=== PATIENT | female | born 1975 | race Caucasian/White ===

== ENCOUNTER → 2017-09-01 | Day surgery (SDC) | payer OTHER ==
[~2017-09-01] MED LIST: LIDOCAINE 2% INJ 100 MG/5 ML SDV (FOR ANES.) As Ordered; PROPOFOL 200 MG/20 ML VIAL As Ordered
[2017-09-01] MEDS: NS 1,000 ML IV (09:00)
== END | disposition home or self-care (01) ==
LOC: M OPP 09:01
DX: R19.5 Other fecal abnormalities (principal); D12.0 Benign neoplasm of cecum; D12.7 Benign neoplasm of rectosigmoid junction; K64.8 Other hemorrhoids; K63.89 Other specified diseases of intestine; R10.13 Epigastric pain; K21.0 Gastro-esophageal reflux disease with esophagitis; K29.70 Gastritis, unspecified, without bleeding; R12 Heartburn; G43.909 Migraine, unspecified, not intractable, without status migrainosus; J45.909 Unspecified asthma, uncomplicated; G25.81 Restless legs syndrome; M19.90 Unspecified osteoarthritis, unspecified site; Z87.440 Personal history of urinary (tract) infections; Z88.1 Allergy status to other antibiotic agents; Z88.8 Allergy status to other drugs, medicaments and biological substances; Z79.899 Other long term (current) drug therapy
CPT/HCPCS: 45380

== ENCOUNTER → 2018-08-24 | Outpatient (CLI) | payer OTHER ==
[~2018-08-24] MED LIST changes: +BACL10TA2; +BACT800T5 PO; +BIOT10008 PO; +CALCCHW19 PO; +E-Z-GAS II EFFERVESCENT PACKET (SODIUM BICARB./CITRIC ACID/SIMETHICONE) As Ordered ONE; +E-Z-HD 98% w/w 340GM SUSP BTL As Ordered ONE; +E-Z-PAQUE 96% w/w SUSP 176GM BTL As Ordered ONE; +ESCI10TA2; -LIDOCAINE 2% INJ 100 MG/5 ML SDV (FOR ANES.) As Ordered; +MULT1TAB10 PO; +OXYC1TAB23 PO; +PANT40TA3; -PROPOFOL 200 MG/20 ML VIAL As Ordered; +ROPI0.253; +VITA100067 PO; +ZOLP10TA2
--- NOTE | 2018-08-24 20:38 | REP ---
Esophagram The procedure was performed under the direct supervision of Dr. Abrams. The images were reviewed with Dr. Abrams. A single view PA chest x-ray is submitted as a database management specialist film. The superior mediastinal structures are midline. The heart size is within normal limits. The lungs are clear. Liquid barium and gas producing granules were given in the erect position as well as liquid barium in the prone oblique positions in order to perform a double contrast esophagram examination. The oral and pharyngeal stages of deglutition are unremarkable. Esophageal transport is prompt and efficient and there is no esophagitis, stricture, mucosal ring or hiatal hernia. The GE junction is patulous and there is gastroesophageal reflux demonstrated to the level of the thoracic inlet. Impression: The GE junction is patulous and there is gastroesophageal reflux demonstrated to the level of the thoracic inlet, otherwise, unremarkable double contrast esophagram examination. 0.5 minutes of fluoro time was utilized for this procedure. Reviewed by CECILIA Beaver 08/24/2018 04:11 P Electronically Signed by Ramón Abrams MD 08/24/2018 08:29 P
== END ==
LOC: M RAD 09:27
PROVIDERS: ATTEND Thoracic Surgery (Cardiothoracic Vascular Surgery)
DX: K21.9 Gastro-esophageal reflux disease without esophagitis (principal)

== ENCOUNTER → 2020-06-20 | Outpatient (CLI) | payer OTHER ==
[~2020-06-20] MED LIST changes: +AMIT25TA PO; -E-Z-GAS II EFFERVESCENT PACKET (SODIUM BICARB./CITRIC ACID/SIMETHICONE) As Ordered ONE; -E-Z-HD 98% w/w 340GM SUSP BTL As Ordered ONE; -E-Z-PAQUE 96% w/w SUSP 176GM BTL As Ordered ONE; +FLUO20CA22 PO; +OXYB10TA23 PO; +OXYC-1 PO; +PANT40TA29; -PANT40TA3; +TEMA15CA2 PO; +TIZA2TA PO
== END ==
LOC: M LABSMTC 10:42
PROVIDERS: ATTEND Anesthesiology
DX: Z01.812 Encounter for preprocedural laboratory examination (principal); Z20.828 Contact with and (suspected) exposure to other viral communicable diseases

== ENCOUNTER 2020-06-25 15:01 | Day surgery (SDC) | payer OTHER ==
[~2020-06-25] VITALS: Ht 162.6 cm; Wt 71.6 kg
[~2020-06-25 15:01] MED LIST changes: +NS 1,000 ML IV ONE
[2020-06-25] MEDS ORDERED: LIDOCAINE 2% 100MG/5ML SDV (FOR ANES.) As Ordered ONE (15:04)
[2020-06-25] MEDS ORDERED: propofoL 200 MG/20 ML VIAL As Ordered ONE (15:04)
[2020-06-25 16:48] VITALS: BP 167/100
--- NOTE | 2020-06-25 17:25 | ROOR ---
Patient Name: Debra Lara Procedure Date: 06/25/2020 4:03 PM Date of : 1975 Age: 45 Room: [facility] Gender: Female Note Status: Finalized Procedure: Upper GI endoscopy Indications: Dysphagia Providers: Nain Mckeon MD Referring MD: Olivia Worthington NP Requesting Provider: Medicines: Monitored Anesthesia Care Complications: No immediate complications. Procedure: Pre-Anesthesia Assessment: - Prior to the procedure, a History and Physical was performed, and patient medications and allergies were reviewed. The patient is competent. The risks and benefits of the procedure and the sedation options and risks were discussed with the patient. All questions were answered and informed consent was obtained. Patient identification and proposed procedure were verified by the physician, the nurse and the anesthesiologist in the procedure room. Mental Status Examination: alert and oriented. Airway Examination: normal oropharyngeal airway and neck mobility. Respiratory Examination: clear to auscultation. CV Examination: normal. Prophylactic Antibiotics: The patient does not require prophylactic antibiotics. Prior Anticoagulants: The patient has taken no previous anticoagulant or antiplatelet agents. ASA Grade Assessment: II - A patient with mild systemic disease. After reviewing the risks and benefits, the patient was deemed in satisfactory condition to undergo the procedure. The anesthesia plan was to use monitored anesthesia care (MAC). Immediately prior to administration of medications, the patient was re-assessed for adequacy to receive sedatives. The heart rate, respiratory rate, oxygen saturations, blood pressure, adequacy of pulmonary ventilation, and response to care were monitored throughout the procedure. The physical status of the patient was re-assessed after the procedure. The Endoscope was introduced through the mouth, and advanced to the second part of duodenum. The upper GI endoscopy was accomplished without difficulty. The patient tolerated the procedure well. Findings: A prior Reginald fundoplication was found at the gastroesophageal junction. This was characterized by healthy appearing mucosa and moderate stenosis. LA Grade A (one or more mucosal breaks less than 5 mm, not extending between tops of 2 mucosal folds) esophagitis with no bleeding was found in the distal esophagus. Biopsies were taken with a cold forceps for histology. Verification of patient identification for the specimen was done by the physician and nurse using the patient's name, date and medical record number. Estimated blood loss was minimal. Scattered moderate inflammation characterized by friability and granularity was found in the gastric antrum. The duodenal bulb and second portion of the duodenum were normal. Impression: - A Reginald fundoplication was found, characterized by healthy appearing mucosa and moderate stenosis. - LA Grade A reflux esophagitis. Rule out Reid's esophagus. Biopsied. - Gastritis. - Normal duodenal bulb and second portion of the duodenum. Recommendation: - Patient has a contact number available for emergencies. The signs and symptoms of potential delayed complications were discussed with the patient. Return to normal activities tomorrow. Written discharge instructions were provided to the patient. - High fiber diet. - Follow an antireflux regimen. - Await pathology results. - Repeat upper endoscopy for balloon dilation only if persistent/ worsening difficulty with swallowing. - Telephone GI clinic for pathology results in 2 weeks. - Return to primary care physician. Procedure Code(s): --- Professional --- 57482, Esophagogastroduodenoscopy, flexible, transoral; with biopsy, single or multiple Diagnosis Code(s): --- Professional --- Z98.890, Other specified postprocedural states K21.0, Gastro-esophageal reflux disease with esophagitis K29.70, Gastritis, unspecified, without bleeding R13.10, Dysphagia, unspecified CPT copyright 2019 [employer]. All rights reserved. The codes documented in this report are preliminary and upon surgical device sales representative review may be revised to meet current compliance requirements. Nain Mckeon MD Nain Mckeon MD 06/25/2020 5:24:12 PM Electronically signed by Nain Mckeon MD Number of Addenda: 0 Note Initiated On: 06/25/2020 4:03 PM Estimated Blood Loss: Estimated blood loss was minimal.
== END 2020-06-25 16:52 | disposition home or self-care (01) ==
LOC: M OPP 15:01
PROVIDERS: ATTEND Internal Medicine Gastroenterology
DX: Z98.890 Other specified postprocedural states (principal); K21.00 Gastro-esophageal reflux disease with esophagitis, without bleeding; K29.70 Gastritis, unspecified, without bleeding; R13.10 Dysphagia, unspecified; Z79.899 Other long term (current) drug therapy; Z88.1 Allergy status to other antibiotic agents; Z88.8 Allergy status to other drugs, medicaments and biological substances

== ENCOUNTER 2021-08-28 11:56 | Inpatient (IN) | payer BC, OTHER ==
[~2021-08-28] VITALS: Ht 160 cm; Wt 73.0 kg
[~2021-08-28 11:56] MED LIST changes: -AMIT25TA PO; +AMIT25TA17 PO; +ESCI10TA16; -ESCI10TA2; -NS 1,000 ML IV ONE
[2021-08-28] MEDS ORDERED: fentaNYL 100 MCG/2 ML INJECTION IV ONE ×3 (12:20→14:55)
[2021-08-28] MEDS ORDERED: propofoL 200 MG/20 ML VIAL IV PRN (13:45)
[2021-08-28] MEDS ORDERED: B COCAP4 PO (13:46)
[2021-08-28] MEDS: NS 1,000 ML IV SCH (14:27)
[2021-08-28] MEDS: propofoL 200 MG/20 ML VIAL IV.PROC PRN ×4 (14:28→14:32)
[2021-08-28] MEDS ORDERED: PERCOCET 5MG/325MG TAB PO ONE (15:05)
[2021-08-28] MEDS ORDERED: OXYC7.5T3 PO (15:50)
[2021-08-28 17:07] LABS: BASO # 0.1 10^3/uL (0.0-0.2); BASO % 0.3 % (0.0-1.0); EOS % 0.1 % (0.0-3.0); HEMOGLOBIN 13.8 g/dl (12.0-15.5); LYMPH # 1.8 10^3/uL (1.5-5.0); LYMPH % 10.1 % (24.0-44.0); MEAN CORPUSCULAR HEMOGLOBIN 30.7 pg (27.0-33.0); MEAN CORPUSCULAR HGB CONC 34.5 g/dl (32.0-36.5); MEAN CORPUSCULAR VOLUME 89.1 fl (80.0-96.0); MONO # 0.6 10^3/uL (0.0-0.8); MONO % 3.3 % (2.0-8.0); NEUTROPHILS # 15.5 10^3/uL (1.5-8.5); NEUTROPHILS % 85.8 % (36.0-66.0); PLATELET COUNT, AUTOMATED 354 10^3/uL (150-450); RED BLOOD COUNT 4.49 10^6/uL (4.00-5.40)
[2021-08-28] MEDS ORDERED: FLUO40CA PO (17:22)
[2021-08-28] MEDS ORDERED: TIZA10TA PO (17:27)
[2021-08-28] MEDS ORDERED: VITMTA PO (17:27)
[2021-08-28] MEDS ORDERED: VITA-183 PO (17:27)
[2021-08-28] MEDS ORDERED: CALCTAB41 PO (17:29)
[2021-08-28] MEDS ORDERED: MORPHINE 2 MG/ML 1ML VIAL (J2270) IV PRN (17:30)
[2021-08-28 17:31] LABS: BLOOD UREA NITROGEN 8 MG/DL (7-18); CALCIUM LEVEL 9.2 MG/DL (8.5-10.1); CARBON DIOXIDE LEVEL 20 MEQ/L (21-32); CHLORIDE LEVEL 111 MEQ/L (98-107); CREATININE FOR GFR 0.95 MG/DL (0.55-1.30); GLOMERULAR FILTRATION RATE > 60.0 (>58); GLUCOSE, FASTING 117 MG/DL (70-100); POTASSIUM SERUM 4.2 MEQ/L (3.5-5.1); SODIUM LEVEL 142 MEQ/L (136-145)
[2021-08-28] MEDS ORDERED: HOME MED LIST COMPLETE! XX SCH (17:35)
[2021-08-28] MEDS ORDERED: LORazepam 2 MG/ML VIAL IV ONE (18:05)
[2021-08-28] MEDS: tiZANidine 4 MG TAB PO SCH (18:17)
[2021-08-28] MEDS ORDERED: LORazepam 2 MG/ML VIAL IV PRN (18:50)
[2021-08-28] MEDS ORDERED: ACETAMINOPHEN *IV* 1,000 MG in IV 1 EA IV ONE (19:15)
[2021-08-28] MEDS: HYDROMORPHONE HCL 0.5 MG/ 0.5 ML SYRINGE (J1170 PER 1) IV PRN (20:52)
[2021-08-28] MEDS ORDERED: TEMAZEPAM 15 MG CAP PO SCH (21:00)
[2021-08-28] MEDS ORDERED: FLUoxetine 20 MG CAP PO SCH (21:00)
[2021-08-28] MEDS ORDERED: AMITRIPTYLINE 25MG TABLET PO SCH (21:00)
[2021-08-28] MEDS ORDERED: CALCIUM/VITAMIN D 500 MG TAB PO SCH (21:00)
[2021-08-28] MEDS ORDERED: MULTIVITAMINS/MINERALS THERAP 1 TAB PO SCH (21:00)
[2021-08-28] MEDS: MORPHINE 2 MG/ML 1ML VIAL (J2270) IV PRN (22:25)
[2021-08-29] MEDS: tiZANidine 4 MG TAB PO SCH ×3 (00:57→11:43)
[2021-08-29] MEDS: HYDROMORPHONE HCL 0.5 MG/ 0.5 ML SYRINGE (J1170 PER 1) IV PRN ×4 (00:58→12:45)
[2021-08-29] MEDS: NS 1,000 ML IV SCH (00:58)
[2021-08-29 02:00] VITALS: BP 137/92
[2021-08-29] MEDS: MORPHINE 2 MG/ML 1ML VIAL (J2270) IV PRN ×2 (02:18→07:52)
[2021-08-29 04:00] VITALS: BP 137/79
[2021-08-29 08:00] VITALS: BP 132/86
[2021-08-29 08:28] LABS: BASO # 0.1 10^3/uL (0.0-0.2); BASO % 0.7 % (0.0-1.0); EOS # 0.1 10^3/uL (0.0-0.5); EOS % 0.8 % (0.0-3.0); HEMATOCRIT 36.5 % (36.0-47.0); HEMOGLOBIN 11.9 g/dl (12.0-15.5); LYMPH # 1.9 10^3/uL (1.5-5.0); LYMPH % 20.7 % (24.0-44.0); MEAN CORPUSCULAR HEMOGLOBIN 30.1 pg (27.0-33.0); MEAN CORPUSCULAR HGB CONC 32.6 g/dl (32.0-36.5); MEAN CORPUSCULAR VOLUME 92.4 fl (80.0-96.0); MONO # 0.6 10^3/uL (0.0-0.8); MONO % 6.4 % (2.0-8.0); NEUTROPHILS # 6.6 10^3/uL (1.5-8.5); NEUTROPHILS % 71.1 % (36.0-66.0); PLATELET COUNT, AUTOMATED 294 10^3/uL (150-450); RED BLOOD COUNT 3.95 10^6/uL (4.00-5.40); WHITE BLOOD COUNT 9.2 10^3/uL (4.0-10.0)
[2021-08-29 08:57] LABS: BLOOD UREA NITROGEN 8 MG/DL (7-18); CALCIUM LEVEL 9.1 MG/DL (8.5-10.1); CARBON DIOXIDE LEVEL 24 MEQ/L (21-32); CHLORIDE LEVEL 108 MEQ/L (98-107); CREATININE FOR GFR 0.81 MG/DL (0.55-1.30); GLOMERULAR FILTRATION RATE > 60.0 (>58); GLUCOSE, FASTING 127 MG/DL (70-100); POTASSIUM SERUM 3.4 MEQ/L (3.5-5.1); SODIUM LEVEL 140 MEQ/L (136-145)
[2021-08-29] MEDS: ACETAMINOPHEN TAB 650MG DOSE (2X325MG) PO SCH ×2 (10:12→14:21)
[2021-08-29] MEDS ORDERED: POTASSIUM CHLORIDE 10MEQ SR TABLET PO ONE (10:15)
[2021-08-29 11:44] VITALS: BP 86/54
[2021-08-29 12:00] VITALS: O2SAT 92
[2021-08-29 12:40] VITALS: BP 90/55
[2021-08-29] MEDS ORDERED: DILA2TAB6 PO ×2 (14:02→14:58)
[2021-08-29] MEDS ORDERED: ACET-907 PO (14:02)
[2021-08-29] MEDS ORDERED: HYDROmorphone 2 MG TAB PO PRN (14:30)
[2021-08-29] MEDS ORDERED: PILL CUTTER 1 EACH XX PRN (14:40)
== END 2021-08-29 15:03 | disposition home health service (06) | DRG 342 ==
LOC: M ED 11:56 → M ED INP 11:57 → OBSVTOIN 20:03 → M PCU 08-29 02:00
PROVIDERS: ADMIT Internal Medicine; ATTEND Internal Medicine
PROC: 0QSKXZZ Reposition Left Fibula, External Approach (ICD-10-PCS; principal; 2021-08-28)
PROC: 0QSHXZZ Reposition Left Tibia, External Approach (ICD-10-PCS; 2021-08-28)
PROC: 2W3RX2Z Immobilization of Left Lower Leg using Cast (ICD-10-PCS; 2021-08-28)
DX: S82.855A Nondisplaced trimalleolar fracture of left lower leg, initial encounter for closed fracture (principal); S82.832A Other fracture of upper and lower end of left fibula, initial encounter for closed fracture; S82.302A Unspecified fracture of lower end of left tibia, initial encounter for closed fracture; S92.354A Nondisplaced fracture of fifth metatarsal bone, right foot, initial encounter for closed fracture; W10.8XXA Fall (on) (from) other stairs and steps, initial encounter; G43.909 Migraine, unspecified, not intractable, without status migrainosus; M79.7 Fibromyalgia; Z79.891 Long term (current) use of opiate analgesic; K21.9 Gastro-esophageal reflux disease without esophagitis; M81.0 Age-related osteoporosis without current pathological fracture; Z79.899 Other long term (current) drug therapy; Z88.1 Allergy status to other antibiotic agents; Z88.8 Allergy status to other drugs, medicaments and biological substances; Z20.822 Contact with and (suspected) exposure to COVID-19; Y92.9 Unspecified place or not applicable

== ENCOUNTER 2021-09-02 12:59 | Inpatient (IN) | payer BC ==
[~2021-09-02] VITALS: Ht 160 cm; Wt 75.1 kg
[2021-09-02] VITALS (8 sets, daily range): BP systolic 111–166; BP diastolic 60–92; O2SAT 95
[2021-09-02] MEDS ORDERED: HOME MED LIST COMPLETE! XX SCH (15:35)
[2021-09-02 15:58] LABS: HEMATOCRIT 36.1 % (36.0-47.0); HEMOGLOBIN 11.9 g/dl (12.0-15.5); MEAN CORPUSCULAR HEMOGLOBIN 30.1 pg (27.0-33.0); MEAN CORPUSCULAR VOLUME 91.4 fl (80.0-96.0); PLATELET COUNT, AUTOMATED 367 10^3/uL (150-450); RED BLOOD COUNT 3.95 10^6/uL (4.00-5.40); WHITE BLOOD COUNT 8.8 10^3/uL (4.0-10.0)
[2021-09-02] MEDS ORDERED: METOCLOPRAMIDE INJ 10MG/2ML VIAL (J2765 PER 1) As Ordered ONE (16:06)
[2021-09-02] MEDS ORDERED: KETOROLAC 60MG 2ML VIAL As Ordered ONE (16:06)
[2021-09-02] MEDS ORDERED: ONDANSETRON 4MG/2ML VIAL As Ordered ONE (16:06)
[2021-09-02] MEDS ORDERED: dexameTHASONE 4 MG/ML 1ML VIAL (J1100 PER 1MG) As Ordered ONE (16:06)
[2021-09-02] MEDS ORDERED: propofoL 200 MG/20 ML VIAL As Ordered ONE (16:06)
[2021-09-02] MEDS ORDERED: LIDOCAINE 2% 100MG/5ML SDV (FOR ANES.) As Ordered ONE (16:06)
[2021-09-02] MEDS ORDERED: MIDAZOLAM INJ 2MG/2ML VIAL (J2250 PER 1MG) As Ordered ONE ×2 (16:07→18:24)
[2021-09-02] MEDS ORDERED: fentaNYL 100 MCG/2 ML INJECTION As Ordered ONE ×2 (16:07→17:37)
[2021-09-02] MEDS ORDERED: BACITRACIN OINTMENT 30GM TUBE As Ordered ONE (16:13)
[2021-09-02 16:18] LABS: BLOOD UREA NITROGEN 10 MG/DL (7-18); CALCIUM LEVEL 9.8 MG/DL (8.5-10.1); CARBON DIOXIDE LEVEL 24 MEQ/L (21-32); CHLORIDE LEVEL 109 MEQ/L (98-107); CREATININE FOR GFR 0.76 MG/DL (0.55-1.30); GLOMERULAR FILTRATION RATE > 60.0 (>58); GLUCOSE, FASTING 97 MG/DL (70-100); POTASSIUM SERUM 3.8 MEQ/L (3.5-5.1); SODIUM LEVEL 141 MEQ/L (136-145)
[2021-09-02] MEDS ORDERED: BUPIVACAINE HCL 0.25% 30ML VIAL As Ordered ONE (16:43)
[2021-09-02] MEDS ORDERED: ceFAZolin 2 GM/D5W 50 ML IV BAG (J0690 PER 500MG) IV ONE (17:00)
[2021-09-02] MEDS: fentaNYL 100 MCG/2 ML INJECTION IV PRN ×4 (17:37→17:52)
[2021-09-02] MEDS ORDERED: ACETAMINOPHEN 325 MG TAB PO PRN (17:40)
[2021-09-02] MEDS ORDERED: ONDANSETRON 4MG/2ML VIAL IV PRN (17:45)
[2021-09-02] MEDS ORDERED: oxyCODONE 5MG TAB PO PRN (17:45)
[2021-09-02] MEDS ORDERED: HYDROmorphone HCL 2MG/ML 1ML VIAL As Ordered ONE (17:45)
[2021-09-02] MEDS ORDERED: LR 1,000 ML IV SCH (17:45)
[2021-09-02] MEDS: HYDROMORPHONE HCL 0.5 MG/ 0.5 ML SYRINGE (J1170 PER 1) IV PRN ×8 (17:50→18:25)
[2021-09-02] MEDS ORDERED: KETAMINE HCL 200 MG/20 ML VIAL As Ordered ONE (18:24)
[2021-09-02] MEDS ORDERED: LIDOCAINE 1% MDV 20ML VIAL XX ONE (18:35)
[2021-09-02] MEDS ORDERED: ROPIvacaine 0.5% 30ML INJECTION (J2795 PER 1MG) XX ONE (18:35)
[2021-09-02] MEDS ORDERED: dexameTHASONE 10MG/1ML VIAL PRES.FREE (J1100 PER 1MG) XX ONE (18:35)
[2021-09-02] MEDS: MIDAZOLAM INJ 2MG/2ML VIAL (J2250 PER 1MG) IV PRN ×2 (18:38→18:40)
[2021-09-02] MEDS: KETAMINE HCL 200 MG/20 ML VIAL IV PRN ×3 (18:39→18:43)
[2021-09-02] MEDS: CALCIUM/VITAMIN D 500 MG TAB PO SCH (20:14)
[2021-09-02] MEDS: tiZANidine 4 MG TAB PO SCH (20:14)
[2021-09-02] MEDS: FLUoxetine 20 MG CAP PO SCH (20:15)
[2021-09-02] MEDS: AMITRIPTYLINE 25MG TABLET PO SCH (20:15)
[2021-09-02] MEDS: MULTIVITAMINS/MINERALS THERAP 1 TAB PO SCH (20:15)
[2021-09-03] VITALS (8 sets, daily range): BP systolic 106–159; BP diastolic 62–95; O2SAT 95–96
[2021-09-03] MEDS: ceFAZolin SOD 1 GM in D5W MINI-BAG PLUS 50 ML IV SCH ×3 (00:59→17:22)
[2021-09-03] MEDS: MORPHINE 4 MG/ML 1ML VIAL/SYRINGE (J2270) IV PRN ×3 (05:38→14:53)
[2021-09-03 06:18] LABS: HEMATOCRIT 35.9 % (36.0-47.0); HEMOGLOBIN 11.7 g/dl (12.0-15.5); MEAN CORPUSCULAR HEMOGLOBIN 30.2 pg (27.0-33.0); MEAN CORPUSCULAR HGB CONC 32.6 g/dl (32.0-36.5); MEAN CORPUSCULAR VOLUME 92.8 fl (80.0-96.0); PLATELET COUNT, AUTOMATED 357 10^3/uL (150-450); RED BLOOD COUNT 3.87 10^6/uL (4.00-5.40); WHITE BLOOD COUNT 6.5 10^3/uL (4.0-10.0)
[2021-09-03 06:35] LABS: BLOOD UREA NITROGEN 11 MG/DL (7-18); CREATININE FOR GFR 0.79 MG/DL (0.55-1.30); GLOMERULAR FILTRATION RATE > 60.0 (>58); GLUCOSE, FASTING 133 MG/DL (70-100)
[2021-09-03 06:36] LABS: CALCIUM LEVEL 10.1 MG/DL (8.5-10.1); CARBON DIOXIDE LEVEL 24 MEQ/L (21-32); CHLORIDE LEVEL 107 MEQ/L (98-107); POTASSIUM SERUM 3.9 MEQ/L (3.5-5.1); SODIUM LEVEL 139 MEQ/L (136-145)
[2021-09-03] MEDS: oxyCODONE 5MG TAB PO PRN ×2 (08:29→18:21)
[2021-09-03] MEDS: ACETAMINOPHEN 325 MG TAB PO SCH ×2 (13:46→20:16)
[2021-09-03] MEDS: HYDROmorphone 2 MG TAB PO PRN (15:55)
[2021-09-03] MEDS: ENOXAPARIN 40MG/0.4ML SYRINGE (J1650 PER 10MG) SC SCH (17:22)
[2021-09-03] MEDS: MULTIVITAMINS/MINERALS THERAP 1 TAB PO SCH (20:15)
[2021-09-03] MEDS: tiZANidine 4 MG TAB PO SCH (20:15)
[2021-09-03] MEDS: CALCIUM/VITAMIN D 500 MG TAB PO SCH (20:16)
[2021-09-03] MEDS: FLUoxetine 20 MG CAP PO SCH (20:17)
[2021-09-03] MEDS: AMITRIPTYLINE 25MG TABLET PO SCH (20:17)
[2021-09-04] MEDS: ACETAMINOPHEN 325 MG TAB PO SCH ×4 (01:18→20:02)
[2021-09-04] MEDS: HYDROmorphone 2 MG TAB PO PRN ×3 (01:22→17:18)
[2021-09-04 06:00] VITALS: BP 100/68
[2021-09-04 08:00] VITALS: BP 114/77
[2021-09-04] MEDS: IBUPROFEN 800 MG TAB PO SCH ×3 (13:03→23:51)
[2021-09-04] MEDS: oxyCODONE 5MG TAB PO PRN (13:07)
[2021-09-04 14:00] VITALS: BP 117/77
[2021-09-04] MEDS: MIRALAX *UNIT DOSE* 17GM PACKET PO SCH (15:28)
[2021-09-04] MEDS: ENOXAPARIN 40MG/0.4ML SYRINGE (J1650 PER 10MG) SC SCH (17:19)
[2021-09-04 20:00] VITALS: O2SAT 96
[2021-09-04] MEDS: MULTIVITAMINS/MINERALS THERAP 1 TAB PO SCH (20:02)
[2021-09-04] MEDS: CALCIUM/VITAMIN D 500 MG TAB PO SCH (20:02)
[2021-09-04] MEDS: tiZANidine 4 MG TAB PO SCH (20:02)
[2021-09-04] MEDS: AMITRIPTYLINE 25MG TABLET PO SCH (20:03)
[2021-09-04] MEDS: FLUoxetine 20 MG CAP PO SCH (20:04)
[2021-09-04 22:00] VITALS: BP 104/69
[2021-09-05] MEDS: ACETAMINOPHEN 325 MG TAB PO SCH ×4 (01:22→20:11)
[2021-09-05] MEDS: oxyCODONE 5MG TAB PO PRN ×2 (04:39→12:49)
[2021-09-05 06:00] VITALS: BP 142/76
[2021-09-05] MEDS: IBUPROFEN 800 MG TAB PO SCH (06:00)
[2021-09-05 06:18] LABS: HEMATOCRIT 36.2 % (36.0-47.0); HEMOGLOBIN 11.6 g/dl (12.0-15.5); MEAN CORPUSCULAR HEMOGLOBIN 30.4 pg (27.0-33.0); MEAN CORPUSCULAR VOLUME 94.8 fl (80.0-96.0); PLATELET COUNT, AUTOMATED 316 10^3/uL (150-450); RED BLOOD COUNT 3.82 10^6/uL (4.00-5.40)
[2021-09-05 07:39] VITALS: BP 141/79
[2021-09-05 08:01] LABS: BLOOD UREA NITROGEN 19 MG/DL (7-18); CALCIUM LEVEL 9.5 MG/DL (8.5-10.1); CARBON DIOXIDE LEVEL 31 MEQ/L (21-32); CHLORIDE LEVEL 107 MEQ/L (98-107); CREATININE FOR GFR 0.87 MG/DL (0.55-1.30); GLOMERULAR FILTRATION RATE > 60.0 (>58); GLUCOSE, FASTING 83 MG/DL (70-100); POTASSIUM SERUM 4.4 MEQ/L (3.5-5.1); SODIUM LEVEL 142 MEQ/L (136-145)
[2021-09-05] MEDS: MIRALAX *UNIT DOSE* 17GM PACKET PO SCH (08:11)
[2021-09-05] MEDS ORDERED: MOM 30ML SUSPENSION UDC PO PRN (13:35)
[2021-09-05 14:00] VITALS: BP 139/74
[2021-09-05] MEDS: ENOXAPARIN 40MG/0.4ML SYRINGE (J1650 PER 10MG) SC SCH ×2 (18:00→18:59)
[2021-09-05] MEDS: HYDROmorphone 2 MG TAB PO PRN (18:53)
[2021-09-05] MEDS: MULTIVITAMINS/MINERALS THERAP 1 TAB PO SCH (20:08)
[2021-09-05] MEDS: CALCIUM/VITAMIN D 500 MG TAB PO SCH (20:08)
[2021-09-05] MEDS: tiZANidine 4 MG TAB PO SCH (20:09)
[2021-09-05] MEDS: DOCUSATE SODIUM 100MG CAPSULE PO SCH (20:09)
[2021-09-05] MEDS: AMITRIPTYLINE 25MG TABLET PO SCH (20:11)
[2021-09-05] MEDS: FLUoxetine 20 MG CAP PO SCH (20:12)
[2021-09-05 22:00] VITALS: BP 117/71
[2021-09-06] MEDS: ACETAMINOPHEN 325 MG TAB PO SCH ×4 (01:54→21:45)
[2021-09-06] MEDS: oxyCODONE 5MG TAB PO PRN ×2 (01:55→21:47)
[2021-09-06] MEDS: HYDROmorphone 2 MG TAB PO PRN (05:12)
[2021-09-06 06:00] VITALS: BP 135/86
[2021-09-06 06:48] LABS: BLOOD UREA NITROGEN 16 MG/DL (7-18); CALCIUM LEVEL 9.2 MG/DL (8.5-10.1); CARBON DIOXIDE LEVEL 30 MEQ/L (21-32); CHLORIDE LEVEL 106 MEQ/L (98-107); CREATININE FOR GFR 0.74 MG/DL (0.55-1.30); GLOMERULAR FILTRATION RATE > 60.0 (>58); GLUCOSE, FASTING 92 MG/DL (70-100); POTASSIUM SERUM 4.3 MEQ/L (3.5-5.1); SODIUM LEVEL 142 MEQ/L (136-145)
[2021-09-06] MEDS: MIRALAX *UNIT DOSE* 17GM PACKET PO SCH (08:18)
[2021-09-06] MEDS: DOCUSATE SODIUM 100MG CAPSULE PO SCH ×2 (08:18→21:43)
[2021-09-06 14:00] VITALS: BP 131/83
[2021-09-06] MEDS: ENOXAPARIN 40MG/0.4ML SYRINGE (J1650 PER 10MG) SC SCH (17:06)
[2021-09-06 20:30] VITALS: BP 126/73
[2021-09-06] MEDS: MULTIVITAMINS/MINERALS THERAP 1 TAB PO SCH (21:43)
[2021-09-06] MEDS: CALCIUM/VITAMIN D 500 MG TAB PO SCH (21:43)
[2021-09-06] MEDS: tiZANidine 4 MG TAB PO SCH (21:44)
[2021-09-06] MEDS: FLUoxetine 20 MG CAP PO SCH (21:46)
[2021-09-06] MEDS: AMITRIPTYLINE 25MG TABLET PO SCH (21:46)
[2021-09-07] MEDS: ACETAMINOPHEN 325 MG TAB PO SCH ×4 (02:05→21:51)
[2021-09-07] MEDS: HYDROmorphone 2 MG TAB PO PRN ×2 (04:06→22:14)
[2021-09-07 05:33] VITALS: BP 112/66
[2021-09-07] MEDS: DOCUSATE SODIUM 100MG CAPSULE PO SCH ×2 (08:02→21:50)
[2021-09-07] MEDS: MIRALAX *UNIT DOSE* 17GM PACKET PO SCH (08:02)
[2021-09-07] MEDS: oxyCODONE 5MG TAB PO PRN (09:24)
[2021-09-07 14:00] VITALS: BP 106/64
[2021-09-07] MEDS: ENOXAPARIN 40MG/0.4ML SYRINGE (J1650 PER 10MG) SC SCH (17:09)
[2021-09-07] MEDS: FLUoxetine 20 MG CAP PO SCH (21:00)
[2021-09-07] MEDS: MULTIVITAMINS/MINERALS THERAP 1 TAB PO SCH (21:00)
[2021-09-07] MEDS: CALCIUM/VITAMIN D 500 MG TAB PO SCH (21:50)
[2021-09-07] MEDS: tiZANidine 4 MG TAB PO SCH (21:50)
[2021-09-07] MEDS: AMITRIPTYLINE 25MG TABLET PO SCH (22:13)
[2021-09-08] MEDS: ACETAMINOPHEN 325 MG TAB PO SCH ×4 (02:00→20:40)
[2021-09-08] MEDS: oxyCODONE 5MG TAB PO PRN ×2 (02:06→18:03)
[2021-09-08 06:00] VITALS: BP 111/73
[2021-09-08 06:47] LABS: HEMATOCRIT 34.6 % (36.0-47.0); HEMOGLOBIN 11.1 g/dl (12.0-15.5); MEAN CORPUSCULAR HEMOGLOBIN 30.7 pg (27.0-33.0); MEAN CORPUSCULAR HGB CONC 32.1 g/dl (32.0-36.5); MEAN CORPUSCULAR VOLUME 95.6 fl (80.0-96.0); PLATELET COUNT, AUTOMATED 316 10^3/uL (150-450); RED BLOOD COUNT 3.62 10^6/uL (4.00-5.40); WHITE BLOOD COUNT 5.7 10^3/uL (4.0-10.0)
[2021-09-08] MEDS: MIRALAX *UNIT DOSE* 17GM PACKET PO SCH (08:10)
[2021-09-08] MEDS: DOCUSATE SODIUM 100MG CAPSULE PO SCH ×2 (08:10→20:40)
[2021-09-08] MEDS: ENOXAPARIN 40MG/0.4ML SYRINGE (J1650 PER 10MG) SC SCH (18:00)
[2021-09-08] MEDS: PANTOPRAZOLE 40MG VIAL (C9113 PER 1) IV SCH (20:39)
[2021-09-08 20:40] VITALS: BP 139/93
[2021-09-08] MEDS: AMITRIPTYLINE 25MG TABLET PO SCH (20:40)
[2021-09-08] MEDS: FLUoxetine 20 MG CAP PO SCH (20:41)
[2021-09-08] MEDS: MULTIVITAMINS/MINERALS THERAP 1 TAB PO SCH (20:41)
[2021-09-08] MEDS: CALCIUM/VITAMIN D 500 MG TAB PO SCH (20:41)
[2021-09-08] MEDS: tiZANidine 4 MG TAB PO SCH (20:41)
[2021-09-09] VITALS (7 sets, daily range): BP systolic 148–170; BP diastolic 84–104
[2021-09-09] MEDS: HYDROmorphone 2 MG TAB PO PRN ×2 (00:27→18:52)
[2021-09-09] MEDS: ACETAMINOPHEN 325 MG TAB PO SCH ×4 (02:06→22:30)
[2021-09-09] MEDS: oxyCODONE 5MG TAB PO PRN (06:03)
[2021-09-09 06:35] LABS: HEMATOCRIT 37.3 % (36.0-47.0); HEMOGLOBIN 12.1 g/dl (12.0-15.5); MEAN CORPUSCULAR HEMOGLOBIN 30.7 pg (27.0-33.0); MEAN CORPUSCULAR HGB CONC 32.4 g/dl (32.0-36.5); MEAN CORPUSCULAR VOLUME 94.7 fl (80.0-96.0); PLATELET COUNT, AUTOMATED 340 10^3/uL (150-450); RED BLOOD COUNT 3.94 10^6/uL (4.00-5.40); WHITE BLOOD COUNT 6.2 10^3/uL (4.0-10.0)
[2021-09-09 06:47] LABS: ALBUMIN 3.5 GM/DL (3.2-5.2); ALT/SGPT 99 U/L (12-78); BILIRUBIN,TOTAL 0.2 MG/DL (0.2-1.0); BLOOD UREA NITROGEN 13 MG/DL (7-18); CALCIUM LEVEL 9.2 MG/DL (8.5-10.1); CARBON DIOXIDE LEVEL 27 MEQ/L (21-32); CHLORIDE LEVEL 108 MEQ/L (98-107); CREATININE FOR GFR 0.92 MG/DL (0.55-1.30); GLOMERULAR FILTRATION RATE > 60.0 (>58); GLUCOSE, FASTING 101 MG/DL (70-100); POTASSIUM SERUM 4.3 MEQ/L (3.5-5.1); SODIUM LEVEL 140 MEQ/L (136-145); TOTAL PROTEIN 6.9 GM/DL (6.4-8.2)
[2021-09-09] MEDS ORDERED: MIDAZOLAM INJ 2MG/2ML VIAL (J2250 PER 1MG) IV PRN (07:01)
[2021-09-09] MEDS ORDERED: fentaNYL 100 MCG/2 ML INJECTION IV PRN ×2 (07:01→13:20)
[2021-09-09] MEDS ORDERED: propofoL 200 MG/20 ML VIAL As Ordered ONE (08:26)
[2021-09-09] MEDS ORDERED: MIDAZOLAM INJ 2MG/2ML VIAL (J2250 PER 1MG) As Ordered ONE (08:26)
[2021-09-09] MEDS ORDERED: ROCURONIUM BROMIDE 50 MG/5 ML VIAL As Ordered ONE ×2 (08:26→10:23)
[2021-09-09] MEDS ORDERED: fentaNYL 100 MCG/2 ML INJECTION As Ordered ONE ×2 (08:26→11:29)
[2021-09-09] MEDS: PANTOPRAZOLE 40MG VIAL (C9113 PER 1) IV SCH (08:27)
[2021-09-09] MEDS: MIRALAX *UNIT DOSE* 17GM PACKET PO SCH (08:27)
[2021-09-09] MEDS ORDERED: ONDANSETRON 4MG/2ML VIAL As Ordered ONE (08:27)
[2021-09-09] MEDS ORDERED: dexameTHASONE 4 MG/ML 1ML VIAL (J1100 PER 1MG) As Ordered ONE (08:27)
[2021-09-09] MEDS: DOCUSATE SODIUM 100MG CAPSULE PO SCH ×2 (08:27→22:30)
[2021-09-09] MEDS ORDERED: LIDOCAINE 2% 100MG/5ML SDV (FOR ANES.) As Ordered ONE (08:27)
[2021-09-09] MEDS ORDERED: BUPIVACAINE HCL 0.25% 30ML VIAL As Ordered ONE (08:51)
[2021-09-09 09:09] LABS: INR 0.89; PROTHROMBIN TIME 12.4 SECONDS (12.7-14.5)
[2021-09-09] MEDS ORDERED: EPINEPHrine INJ 1 MG/ML 1ML AMP XX ONE (09:15)
[2021-09-09] MEDS ORDERED: dexameTHASONE 10MG/1ML VIAL PRES.FREE (J1100 PER 1MG) XX ONE (09:15)
[2021-09-09] MEDS ORDERED: ROPIvacaine 0.5% 30ML INJECTION (J2795 PER 1MG) XX ONE (09:15)
[2021-09-09] MEDS ORDERED: BUPIVACAINE LIPOSOME/PF 1.3% 20ML VIAL (13.3MG/ML)(EXPAREL)(C9290 PER1MG) As Ordered ONE (09:24)
[2021-09-09] MEDS ORDERED: ceFAZolin 2 GM/D5W 50 ML IV BAG (J0690 PER 500MG) As Ordered ONE (09:39)
[2021-09-09] MEDS ORDERED: KETAMINE HCL 200 MG/20 ML VIAL As Ordered ONE (10:16)
[2021-09-09] MEDS ORDERED: SUGAMMADEX SODIUM 500 MG/5 ML VIAL (BRIDION) As Ordered ONE (10:24)
[2021-09-09] MEDS ORDERED: ACETAMINOPHEN 1000MG 100ML IV BTL (OFIRMEV) (J0131 PER 10MG) As Ordered ONE (10:26)
[2021-09-09] MEDS ORDERED: LABETALOL 100MG/20ML VIAL As Ordered ONE (11:52)
[2021-09-09] MEDS ORDERED: HYDROmorphone HCL 2MG/ML 1ML VIAL As Ordered ONE (12:52)
[2021-09-09] MEDS ORDERED: ONDANSETRON 4MG/2ML VIAL IV PRN ×2 (13:20→20:30)
[2021-09-09] MEDS ORDERED: oxyCODONE 5MG TAB PO PRN (13:20)
[2021-09-09] MEDS ORDERED: LR 1,000 ML IV SCH (13:20)
[2021-09-09] MEDS ORDERED: HYDROMORPHONE HCL 0.5 MG/ 0.5 ML SYRINGE (J1170 PER 1) IV PRN (14:30)
[2021-09-09] MEDS: ceFAZolin SOD 1 GM in D5W MINI-BAG PLUS 50 ML IV SCH (18:52)
[2021-09-09] MEDS: AMITRIPTYLINE 25MG TABLET PO SCH (22:30)
[2021-09-09] MEDS: CALCIUM/VITAMIN D 500 MG TAB PO SCH (22:30)
[2021-09-09] MEDS: FLUoxetine 20 MG CAP PO SCH (22:30)
[2021-09-09] MEDS: MULTIVITAMINS/MINERALS THERAP 1 TAB PO SCH (22:30)
[2021-09-09] MEDS: tiZANidine 4 MG TAB PO SCH (22:31)
[2021-09-10] VITALS: BP_SYST 106; BP_SYST 95; BP_DIAS 52; BP_DIAS 57
[2021-09-10 01:03] VITALS: BP 105/61; O2SAT 93
[2021-09-10 01:10] VITALS: BP 106/66
[2021-09-10] MEDS: ceFAZolin SOD 1 GM in D5W MINI-BAG PLUS 50 ML IV SCH ×2 (01:36→09:23)
[2021-09-10] MEDS: ACETAMINOPHEN 325 MG TAB PO SCH ×3 (01:37→13:34)
[2021-09-10 04:00] VITALS: BP 108/73
[2021-09-10 06:13] LABS: HEMATOCRIT 32.9 % (36.0-47.0); HEMOGLOBIN 10.7 g/dl (12.0-15.5); MEAN CORPUSCULAR HGB CONC 32.5 g/dl (32.0-36.5); MEAN CORPUSCULAR VOLUME 95.4 fl (80.0-96.0); PLATELET COUNT, AUTOMATED 325 10^3/uL (150-450); RED BLOOD COUNT 3.45 10^6/uL (4.00-5.40); WHITE BLOOD COUNT 11.3 10^3/uL (4.0-10.0)
[2021-09-10] MEDS: oxyCODONE 5MG TAB PO PRN (06:14)
[2021-09-10 06:48] LABS: ALBUMIN 3.1 GM/DL (3.2-5.2); ALT/SGPT 106 U/L (12-78); BILIRUBIN,TOTAL 0.5 MG/DL (0.2-1.0); BLOOD UREA NITROGEN 11 MG/DL (7-18); CARBON DIOXIDE LEVEL 26 MEQ/L (21-32); CHLORIDE LEVEL 106 MEQ/L (98-107); CREATININE FOR GFR 0.91 MG/DL (0.55-1.30); GLOMERULAR FILTRATION RATE > 60.0 (>58); GLUCOSE, FASTING 109 MG/DL (70-100); POTASSIUM SERUM 3.8 MEQ/L (3.5-5.1); SODIUM LEVEL 137 MEQ/L (136-145); TOTAL PROTEIN 6.9 GM/DL (6.4-8.2)
[2021-09-10] MEDS: MIRALAX *UNIT DOSE* 17GM PACKET PO SCH (09:00)
[2021-09-10] MEDS: DOCUSATE SODIUM 100MG CAPSULE PO SCH (09:22)
[2021-09-10] MEDS: PANTOPRAZOLE 40MG VIAL (C9113 PER 1) IV SCH (09:23)
[2021-09-10] MEDS: HYDROmorphone 2 MG TAB PO PRN ×2 (09:25→13:36)
[2021-09-10 10:00] VITALS: BP 102/59
[2021-09-10 11:30] VITALS: O2SAT 95
[2021-09-10] MEDS ORDERED: ENOXAPARIN 40MG/0.4ML SYRINGE (J1650 PER 10MG) SC SCH (13:00)
[2021-09-10] MEDS ORDERED: MIRA1POW3 PO (13:12)
[2021-09-10] MEDS ORDERED: COLA100C5 PO (13:12)
== END 2021-09-10 14:44 | disposition home or self-care (01) | DRG 313 ==
LOC: M MSPAV 13:47
PROVIDERS: ADMIT Orthopaedic Surgery Hand Surgery; ATTEND Internal Medicine
PROC: 0QHH35Z Insertion of External Fixation Device into Left Tibia, Percutaneous Approach (ICD-10-PCS; 2021-09-02)
PROC: 0QSHXZZ Reposition Left Tibia, External Approach (ICD-10-PCS; principal; 2021-09-02 15:30)
PROC: 0QSH04Z Reposition Left Tibia with Internal Fixation Device, Open Approach (ICD-10-PCS; 2021-09-09)
PROC: 0QSK04Z Reposition Left Fibula with Internal Fixation Device, Open Approach (ICD-10-PCS; 2021-09-09)
DX: S82.852A Displaced trimalleolar fracture of left lower leg, initial encounter for closed fracture (principal); M79.7 Fibromyalgia; G43.909 Migraine, unspecified, not intractable, without status migrainosus; K21.9 Gastro-esophageal reflux disease without esophagitis; M81.0 Age-related osteoporosis without current pathological fracture; K59.00 Constipation, unspecified; K22.70 Barrett's esophagus without dysplasia; S92.351A Displaced fracture of fifth metatarsal bone, right foot, initial encounter for closed fracture; Z79.899 Other long term (current) drug therapy; Z88.8 Allergy status to other drugs, medicaments and biological substances; W18.30XA Fall on same level, unspecified, initial encounter; Y92.009 Unspecified place in unspecified non-institutional (private) residence as the place of occurrence of the external cause

== ENCOUNTER → 2021-09-02 | Outpatient (CLI) | payer BC ==
[~2021-09-02] MED LIST changes: +ACET-907 PO; +B COCAP4 PO; +CALCTAB41 PO; +DILA2TAB6 PO; +FLUO40CA PO; +OXYC7.5T3 PO; +TIZA10TA PO; +VITA-183 PO; +VITMTA PO
== END ==
LOC: M SOG 10:11
PROVIDERS: ATTEND Orthopaedic Surgery Hand Surgery
DX: M79.672 Pain in left foot (principal)

== ENCOUNTER → 2021-09-19 | Outpatient (CLI) | payer BC ==
[~2021-09-19] MED LIST changes: +COLA100C5 PO; +MIRA1POW3 PO
== END ==
LOC: M SOG 09:49
PROVIDERS: ATTEND Orthopaedic Surgery Hand Surgery
DX: S82.852A Displaced trimalleolar fracture of left lower leg, initial encounter for closed fracture (principal); X58.XXXA Exposure to other specified factors, initial encounter; Y92.9 Unspecified place or not applicable

== ENCOUNTER → 2021-10-03 | Outpatient (CLI) | payer BC | LOC: M SOG 08:03 | PROVIDERS: ATTEND Physician Assistant | DX: S82.852D Displaced trimalleolar fracture of left lower leg, subsequent encounter for closed fracture with routine healing (principal); S92.351D Displaced fracture of fifth metatarsal bone, right foot, subsequent encounter for fracture with routine healing; X58.XXXD Exposure to other specified factors, subsequent encounter; Y92.9 Unspecified place or not applicable ==

== ENCOUNTER → 2022-01-16 | Outpatient (CLI) | payer BC | LOC: M SOG 13:45 | PROVIDERS: ATTEND Orthopaedic Surgery Hand Surgery | DX: S82.852D Displaced trimalleolar fracture of left lower leg, subsequent encounter for closed fracture with routine healing (principal); W18.30XD Fall on same level, unspecified, subsequent encounter ==

== ENCOUNTER → 2022-05-06 | Outpatient (CLI) | payer BC | LOC: M SOG 11:22 | PROVIDERS: ATTEND Orthopaedic Surgery Hand Surgery | DX: S82.852D Displaced trimalleolar fracture of left lower leg, subsequent encounter for closed fracture with routine healing (principal) ==

== ENCOUNTER → 2022-12-09 | Outpatient (CLI) | payer BC | LOC: M SOG 09:51 | PROVIDERS: ATTEND Orthopaedic Surgery Hand Surgery | DX: M25.572 Pain in left ankle and joints of left foot (principal) ==

== ENCOUNTER → 2022-12-23 | Outpatient (CLI) | payer BC | LOC: M RAD 08:58 | PROVIDERS: ATTEND Physician Assistant Medical | DX: J32.9 Chronic sinusitis, unspecified (principal) ==

== ENCOUNTER → 2025-06-01 | Outpatient (CLI) | payer BC ==
[~2025-06-01] MED LIST changes: -AMIT25TA17 PO; +AMIT25TA19 PO; +D31000CA6 PO; +FLUO-365 PO; -FLUO20CA22 PO; -MIRA1POW3 PO; +MIRA33506 PO; -ROPI0.253; +ROPI5TAB19; -VITA-183 PO; +ZOLP10TA11; -ZOLP10TA2
== END ==
LOC: M SOG 07:38
PROVIDERS: ATTEND Neuromusculoskeletal Medicine, Sports Medicine
DX: M25.511 Pain in right shoulder (principal)